=== PATIENT | male | born 1945 | race Caucasian/White ===

== ENCOUNTER 2017-07-27 09:38 | Emergency (ER) | payer MEDICARE ==
[~2017-07-27] VITALS: Ht 175.3 cm; Wt 93.2 kg
--- NOTE | 2017-07-27 09:54 | ED.REPORT ---
HPI-Chest Pain 40 and Over Date of Service Jul 27, 2017 ED Provider: James Palomo Pt is a 72 y/o male with a history of DM and hypertension who presents to the ED via EMS complaining of non-radiating chest pain onset a few days that worsened this morning. He describes his symptoms as an intermittent, stabbing pain that goes away quickly. He called EMS today because his chest pain became more frequent while he was working in his yard this morning. Additional symptoms include mild diaphoresis, anxiety, and leg pain s/p diabetic neuropathy. He denies nausea, vomiting, diarrhea, SOB, abdominal pain, or lower leg edema. He states that he usually is tachycardic while visiting the doctor. Nursing Notes Stated Complaint: CHEST PAIN Nursing Notes Reviewed: Yes Allergies: Coded Allergies: No Known Allergies (Verified Allergy, Unknown, 07/27/17) General Time Seen by MD: 09:53 Chief Complaint Chest pain Hx Obtained From: Patient Arrived By: Ambulance Sudden in Onset?: Yes Onset Occurred: Just prior to arrival Symptom Duration: Intermittent Quality: Painful, Stabbing Radiation: : Does not radiate Severity: Current: Mild Severity: Maximum: Moderate Context Related History: Reports: Diabetes mellitus, Hypertension Recent Healthcare: Recent doctor visit Past Medical History Past Medical History Reports: Diabetes mellitus, Hypertension Past Surgical History Eye surgery Smoking History Former Smoker Social History Alcohol Use: Denies alcohol use Drug Use: Denies drug use Ambulatory Status Independent Review of Systems Respiratory: Denies: Shortness of breath Cardiovascular: Reports: Chest pain GI: Denies: Abdominal pain, Diarrhea, Nausea, Vomiting Musculoskeletal: Reports: Extremity pain (leg pain s/p diabetic neuropathy), Denies: Extremity swelling Skin: Reports Diaphoresis (mild) Psychiatric: Reports: Anxiety Complete sys rev & neg: except as marked. Physical Exam Initial Vital Signs Vital Signs (First) Date Time Temp Pulse Resp B/P Pulse Ox O2 Delivery O2 Flow Rate FiO2 07/27/17 09:57 36.7 113 20 169/78 96 Room Air Initial VS: Reviewed Neck: Supple, Full range of motion Extremities: Vascular intact, Neuro intact, No swelling, No tenderness Skin: Warm, Dry, No cyanosis Neurologic: Alert, Oriented, Nonfocal Psychiatric: Mood/affect normal, Behavior normal, Normal thought content General/Constitutional: Awake, Alert Respiratory / Chest: Atraumatic, Breath sounds NL, Breath sounds = bilat, No respiratory distress Cardiovascular: Heart rate NL, Heart sounds NL Heart Rate / Rhythm: Positive: Tachycardia Abdomen: Soft, Non-tender Head / Eyes: Atraumatic, Normocephalic Right eye exotropia Interpretation & Diagnostics Lab Results Interpretation Result Diagram: 07/27/17 1025 07/27/17 1025 Test 07/27/17 10:25 07/27/17 10:30 White Blood Count 12.0th/mm3 (3.8-10.1) Red Blood Count 5.24mil/mm3 (4.40-5.80) Hemoglobin 15.4g/dL (13.8-17.2) Hematocrit 45.0% (41.0-50.0) Mean Corpuscular Volume 85.9fL (81-100) Mean Corpuscular Hemoglobin 29.4pg (27.0-35.0) Mean Corpuscular Hemoglobin Concent 34.2% (32.0-37.0) Red Cell Distribution Width 12.8% (12.3-15.4) Platelet Count 195bil/L (150-400) Neutrophils (%) (Auto) 82.2% (40-74) Lymphocytes (%) (Auto) 9.7% (14-46) Monocytes (%) (Auto) 7.3% (4-12) Eosinophils (%) (Auto) 0.1% (0-5) Basophils (%) (Auto) 0.3% (0-3) D-Dimer < 0.50mg/L FEU (<0.50) Sodium Level 137mEq/L (134-144) Potassium Level 4.0mEq/L (3.5-5.2) Chloride Level 100mEq/L (97-108) Carbon Dioxide Level 20mmol/L (18-29) Blood Urea Nitrogen 20mg/dL (8-27) Creatinine 0.90mg/dL (0.76-1.27) Estimat Glomerular Filtration Rate 88mL/min (>59) Glucose Level 144mg/dL (60-99) Calcium Level 9.7mg/dL (8.5-10.1) Magnesium Level 2.2mg/dL (1.6-2.6) Total Bilirubin 0.4mg/dL (0.0-1.2) Aspartate Amino Transf (AST/SGOT) 18U/L (0-50) Alanine Aminotransferase (ALT/SGPT) 18U/L (0-44) Alkaline Phosphatase 63U/L (25-160) Troponin T 0.010ug/L (0.0-0.011) Total Protein 7.6g/dL (6.4-8.4) Albumin 4.4g/dL (3.4-5.0) Hold Urine Received (Received) ECG Interpretation ECG Interpretation: Sinus tachycardia, rate 113 Time: 09:57 Interpreted by: ED physician X-Ray Chest Interpretation Chest Xray Interpretation: IMPRESSION: 1. No acute cardiopulmonary disease. Dictated by: Natan Hussein M.D. on 07/27/2017 at 10:19 Approved by: Natan Hussein M.D. on 07/27/2017 at 10:19 View: Portable, 1 view Interpretation / Wet Read by: Interpret - Radiologist Re-Eval/Medical Decision Med Decision/Clinical Course Patient presents with focal in transient sharp pains that are not exertional and not associated with shortness of breath without radiation. Overall the clinical scenario sounds like atypical chest pain. EKG other than a low-grade tachycardia is reassuring. Chest x-ray and lab work are unremarkable. The patient has been pain-free since arrival to the ER. Discussion was had with patient that he certainly carries risk factors for coronary artery disease although he does not seem to have any history or findings of acute coronary syndrome at this time. It is discussed at length that the patient should return immediately to the ER with any recurrent or persistent pain, additionally it is encouraged that he follow very closely with his primary care for urgent outpatient stress test. Patient is already on aspirin daily. Return and follow-up precautions given. Source of Hx: Old records Time of Eval: 11:09 Patient Status: Condition improved Re-Evaluation/Progress Note: Patient rechecked. Discussed plan for discharge. Patient understands and agrees with plan. F/U instructions and RTER warnings given. All questions addressed at this time. Counseled Regarding: Diagnosis, Lab results, Need for follow-up, When/why to return to ED Discharge & Departure Primary Impression: Chest pain Chest pain type: unspecified Qualified Code: R07.9 - Chest pain, unspecified Disposition: Home Discharge Condition All VS Reviewed: Yes Condition: Stable Patient Instructions: Angina (ED) Additional Instructions: Your workup in the emergency department is reassuring. Continue taking aspirin daily along with your other medications. Call your primary care doctor today for close follow-up as you will need further outpatient evaluation which will likely include a stress test. Return to the ER immediately if you develop persistent chest pain, or other concerning signs or symptoms. Referrals: Amadou Chamorro MD (PCP) Scribe Attestation Portions of this note were transcribed by Adeline Gurrola. I, Dr. Palomo, personally performed the history, physical exam and medical decision-making; I reviewed and confirmed the accuracy of the information in the transcribed note. Signed by Nohemi Swanson, 07/27/17. copies to: Amadou Chamorro MD, Timothy S DO Jul 27, 2017 09:53 Adeline Gurrola Jul 27, 2017 09:58
[2017-07-27 09:57] VITALS: BP 169/78; PULSE 113; RESP 20; O2SAT 96
--- NOTE | 2017-07-27 10:20 | DRSVH ---
PROCEDURE: X-RAY CHEST ONE VIEW, PORTABLE ([id number]) INDICATIONS: chest pain TECHNIQUE: One view of the chest was acquired. COMPARISON: None. FINDINGS: Surgical changes and devices: None. Lungs and pleura: No pleural effusions or pneumothorax. Lungs are clear. Mediastinum: Mediastinal contours appear normal. Heart size is normal. Bones and chest wall: No suspicious bony lesions. Overlying soft tissues appear unremarkable. IMPRESSION: 1. No acute cardiopulmonary disease. Dictated by: Natan Hussein M.D. on 07/27/2017 at 10:19 Approved by: Natan Hussein M.D. on 07/27/2017 at 10:19
[2017-07-27 10:32] LABS: BASOPHILS % (AUTO) 0.3 % (0-3); EOSINOPHILS % (AUTO) 0.1 % (0-5); MONOCYTES % (AUTO) 7.3 % (4-12); Mean Corpuscular Hemoglobin 29.4 pg (27.0-35.0); Mean Corpuscular Volume 85.9 fL (81-100); NEUTROPHILS % (AUTO) 82.2 % (40-74); Platelet Count 195 bil/L (150-400)
[2017-07-27 11:10] LABS: Magnesium 2.2 mg/dL (1.6-2.6); TROPONIN T 0.01 ug/L (0.0-0.011)
[2017-07-27 11:18] VITALS: BP 151/70; PULSE 105; RESP 20; O2SAT 92
[2017-07-27 11:41] VITALS: BP 144/83; PULSE 105; RESP 18; O2SAT 95
== END 2017-07-27 11:41 | disposition home or self-care (01) ==
LOC: EDUNIT# 09:38 → SED 09:38 → EDBD 09:38 → SED 11:41
DX: R07.9 Chest pain, unspecified (principal); R61 Generalized hyperhidrosis; F41.9 Anxiety disorder, unspecified; M79.606 Pain in leg, unspecified; I10 Essential (primary) hypertension; E11.9 Type 2 diabetes mellitus without complications; Z98.890 Other specified postprocedural states; Z87.891 Personal history of nicotine dependence